=== PATIENT | male | born 1985 | race Caucasian/White ===

== ENCOUNTER 2017-03-25 01:49 | Emergency (ER) | payer MEDICAID ==
[2017-03-25 02:01] VITALS: BMI 30.7
[2017-03-25 02:02] VITALS: RESP 18; TEMP 98; O2SAT 97
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
[2017-03-25 02:58] VITALS: BP 124/68; PULSE 89
== END 2017-03-25 02:53 | disposition home or self-care (01) ==
LOC: ED 01:49
DX: Z04.1 Encounter for examination and observation following transport accident (principal); V49.49XA Driver injured in collision with other motor vehicles in traffic accident, initial encounter; Y92.410 Unspecified street and highway as the place of occurrence of the external cause
CPT/HCPCS: 96372; 99283; J1885